=== PATIENT | male | born 1995 | race Caucasian/White ===

== ENCOUNTER → 2016-11-13 | Outpatient (CLI) | payer BC ==
[~2016-11-13] MED LIST: HYDROCODON-ACE1 EACH PO; LORTAB 5/500 TA1 TA1 PO; NO MEDICATIONS; WELLBUTRIN SR150 MG PO
[2016-11-13 14:42] LABS: HEMOGLOBIN 15.3 gm/dL (13.0-16.0); MEAN CELL VOLUME 87.8 FL (83-96); MEAN CORPUSCULAR HEMOGLOBIN 30.6 PG (28-34); MEAN CORPUSCULAR HGB CONC 34.9 g/dL (30-36); MEAN PLATELET VOLUME 8.3 FL (6.5-11.5); RED BLOOD COUNT 5.01 X10e (3.90-5.60); RED CELL DISTRIBUTION WIDTH 12.6 % (11.0-15.5); WHITE BLOOD COUNT 9.1 X10e3 (4.0-10.5)
== END | disposition home or self-care (01) ==
LOC: CLAB 14:15
PROVIDERS: Orthopaedic Surgery Sports Medicine
DX: Z01.812 Encounter for preprocedural laboratory examination (principal); M71.22 Synovial cyst of popliteal space [Baker], left knee
CPT/HCPCS: 36415; 85027